=== PATIENT | male | born 1960 | race Caucasian/White ===

== ENCOUNTER 2020-05-29 18:37 | Emergency (ER) | payer BC ==
[2020-05-29] MEDS ORDERED: Sodium Chloride 0.9% 2.5 ML Syringe FLUSH PRN (18:39)
[2020-05-29] MEDS ORDERED: Sodium Chloride 0.9% 10 ML Syringe FLUSH PRN (18:39)
--- NOTE | 2020-05-29 18:42 | EDM.PDOC ---
ED HPI GENERAL MEDICAL PROBLEM <Lupillo Gli - Last Filed: 05/29/20 19:05> <Jay Romero - Last Filed: 05/29/20 20:16> - General Chief Complaint: Trauma Stated Complaint: TRAUMA Time Seen by Provider: 05/29/20 18:39 - History of Present Illness INITIAL COMMENTS - FREE TEXT/NARRATIVE: 59-year-old male with history of alcohol abuse and A. fib presents after being found down by his . Patient reportedly fell from standing is unclear how long he was down on the ground. He says that he is fine and just repeatedly says "Oh my Gosh." Over and over again. (Lupillo Gil) - Related Data Allergies Allergy/AdvReac Type Severity Reaction Status Date / Time Sulfa (Sulfonamide Allergy Cannot Verified 05/29/20 18:59 Antibiotics) Remember Home Meds: Home Meds Hydrochlorothiazide 1 tab PO DAILY 10/20/15 [History] Metoprolol Succinate [Toprol XL 100mg] 1 tab PO DAILY 10/20/15 [History] dilTIAZem HCL [Taztia Xt] 1 tab PO DAILY 10/20/15 [History] hydrALAZINE [Apresoline] 1 tab PO TID 10/20/15 [History] Past Medical History HEENT History: Reports: None Cardiovascular History: Reports: Hypertension Respiratory History: Reports: None Gastrointestinal History: Reports: None Neurological History: Reports: None Psychiatric History: Reports: None Endocrine/Metabolic History: Reports: None Dermatologic History: Reports: None - Infectious Disease History Infectious Disease History: Reports: None <Lupillo Gil - Last Filed: 05/29/20 19:05> Social & Family History - Family History Cardiac: Reports: CAD Endocrine/Metabolic: Reports: Diabetes, type II <Lupillo Gil - Last Filed: 05/29/20 19:05> Review of Systems - Review of Systems Review Of Systems: Unable To Obtain Reason Not Obtained: intoxication <Lupillo Gil - Last Filed: 05/29/20 19:05> ED EXAM, GENERAL - Physical Exam Exam: See Below <Lupillo Gil - Last Filed: 05/29/20 19:05> - Physical Exam Free Text/Narrative:: General Appearance: No acute distress, appears comfortable Skin: No rash HEENT: Normocephalic, 1 cm well approximated laceration just superior to the lateral border of the right eyebrow, midface stable no periorbital swelling, sclera anicteric, mucous membranes moist Neck: No clear swelling or deformity but given intoxication remains in c-collar Chest and Lungs: Bilateral breath sounds, clear to auscultation, no focal tenderness or crepitus Cardiovascular: Regular rate and rhythm, no murmur Abdomen: Soft, non-tender Back: Normal Musculoskeletal: No edema or tenderness, moves all four extremities well no focal tenderness or swelling of the major joints pelvis nontender and stable to rock Neurologic: Awake, alert, no obvious deficits, moving all extremities, GCS 14 for his intoxication (Lupillo Gil) ED TRAUMA PROCEDURES - Laceration/Wound Repair Left Forehead Lac/Wound Length In cm: 1 Appearance: Superficial Distal NVT: Neuro & Vascular Intact Anesthetic Type: Other (None needed) Skin Prep: Saline Exploration/Debridement/Repair: Wound Explored, In a Bloodless Field Closed With: Dermabond <Jay Romero - Last Filed: 05/29/20 20:16> - Laceration/Wound Repair Left Forehead Progress/Comments: Uneventful repair of superficial laceration was accomplished (Jay Romero) Course <Jay Romero - Last Filed: 05/29/20 20:16> - Vital Signs Text/Narrative:: 1921 hrs. patient eloped briefly but he was returned to his bed without having any fall or other event. He agreed to cooperate. Watch closely in case he cannot remember he agreed to that. The laceration on the forehead appears hemostatic and looks like we could clean it up and probably is a dermal adhesive. It is in no acute distress. He is cooperative but will be leave the bedside he forgets and tries to get up. The patient has an alcohol level of 345 and his behavior is perfectly consistent with that. Wound was repaired. Awaiting CT and decision by the family if they will come and get him so that he does not have to spend the night sobering up in the emergency department. I spoke with the if the CTs came back positive and she agreed to come and get him and try to get him to see a counselor at [facility] or get into . Patient will be discharged to the care of the . (Jay Romero) Last Recorded V/S: Last Vital Signs Temp 96.1 F L 05/29/20 18:44 Pulse 72 05/29/20 18:44 Resp 15 05/29/20 18:44 BP 129/90 05/29/20 18:44 Pulse Ox 96 05/29/20 18:44 - Orders/Labs/Meds Orders: Active Orders 24 hr Category Date Time Status Communication Order [RC] STAT Care 05/29/20 19:23 Active Vaccines to be Administered [RC] PER UNIT ROUTINE Care 05/29/20 19:23 Active Sodium Chloride 0.9% [Saline Flush] Med 05/29/20 18:39 Active 10 ml FLUSH ASDIRECTED PRN Sodium Chloride 0.9% [Saline Flush] Med 05/29/20 18:39 Active 2.5 ml FLUSH ASDIRECTED PRN Saline Lock Insert [OM.PC] Stat Oth 05/29/20 18:39 Ordered Medication Orders Sodium Chloride (Saline Flush) 10 ml FLUSH ASDIRECTED PRN PRN Reason: Keep Vein Open Sodium Chloride (Saline Flush) 2.5 ml FLUSH ASDIRECTED PRN PRN Reason: Keep Vein Open Labs: Laboratory Tests 05/29/20 05/29/20 05/29/20 Range/Units 18:40 18:40 18:40 WBC 14.68 H (4.0-11.0) K/uL RBC 5.18 (4.50-5.90) M/uL Hgb 16.5 (13.0-17.0) g/dL Hct 49.2 (38.0-50.0) % MCV 95.0 (80.0-98.0) fL MCH 31.9 (27.0-32.0) pg MCHC 33.5 (31.0-37.0) g/dL RDW Std Deviation 50.1 (28.0-62.0) fl RDW Coeff of Dora 14 (11.0-15.0) % Plt Count 238 (150-400) K/uL MPV 10.60 (7.40-12.00) fL Neut % (Auto) 58.6 (48.0-80.0) % Lymph % (Auto) 28.3 (16.0-40.0) % [place] % (Auto) 9.8 (0.0-15.0) % Eos % (Auto) 2.8 (0.0-7.0) % Baso % (Auto) 0.5 (0.0-1.5) % Neut # (Auto) 8.6 H (1.4-5.7) K/uL Lymph # (Auto) 4.2 H (0.6-2.4) K/uL [place] # (Auto) 1.4 H (0.0-0.8) K/uL Eos # (Auto) 0.4 (0.0-0.7) K/uL Baso # (Auto) 0.1 (0.0-0.1) K/uL Nucleated RBC % 0.0 /100WBC Nucleated RBCs # 0 K/uL INR 1.05 APTT 24.3 (18.6-31.3) SEC Sodium 139 (136-148) mmol/L Potassium 3.4 L (3.5-5.1) mmol/L Chloride 101 (98-107) mmol/L Carbon Dioxide 26.3 (21.0-32.0) mmol/L BUN 18 (7.0-18.0) mg/dL Creatinine 1.0 (0.8-1.3) mg/dL Est Cr Clr Drug Dosing 80.10 mL/min Estimated GFR (MDRD) > 60.0 ml/min Glucose 141 H (74-106) mg/dL Calcium 9.1 (8.5-10.1) mg/dL Magnesium 1.6 L (1.8-2.4) mg/dL Total Bilirubin 0.3 (0.2-1.0) mg/dL AST 40 H (15-37) IU/L ALT 43 (14-63) IU/L Alkaline Phosphatase 105 (46-116) U/L Creatine Kinase 120 (26-308) U/L Total Protein 8.0 (6.4-8.2) g/dL Albumin 4.0 (3.4-5.0) g/dL Globulin 4.0 (2.6-4.0) g/dL Albumin/Globulin Ratio 1.0 (0.9-1.6) Ethyl Alcohol 345 mg/dL Meds: Medications Generic Name Dose Route Start Last Admin Trade Name Freq PRN Reason Stop Dose Admin Sodium Chloride 10 ml 05/29/20 18:39 Saline Flush FLUSH ASDIRECTED PRN Keep Vein Open Sodium Chloride 2.5 ml 05/29/20 18:39 Saline Flush FLUSH ASDIRECTED PRN Keep Vein Open Discontinued Medications Generic Name Dose Route Start Last Admin Trade Name Latia PRN Reason Stop Dose Admin Diphtheria/Tetanus/Acell Pertussis 0.5 ml 05/29/20 19:23 05/29/20 19:57 Adacel IM 05/29/20 19:24 0.5 ml .ONCE ONE Administration Octyl Cyanoacrylate 1 applic 05/29/20 19:23 05/29/20 19:57 Dermabond Advance TOP 05/29/20 19:24 1 applic ONETIME ONE Administration Departure <Lupillo Gil - Last Filed: 05/29/20 19:05> - Departure Time of Disposition: 20:15 Condition: Good <HeatherJay - Last Filed: 05/29/20 20:16> - Departure Disposition: Home, Self-Care 01 Clinical Impression: Laceration of forehead Alcohol intoxication Qualifiers: Complication of substance-induced condition: uncomplicated Qualified Code(s): F10.120 - Alcohol abuse with intoxication, uncomplicated - Discharge Information Instructions: Laceration Care, Adult Referrals: Gopal Ames MD [Primary Care Provider] - Forms: ED Department Discharge Additional Instructions: [facility] - Primary Care [address] [place] [address] [address] [facility] Address: [address] [place] [address] Hours: walk in 9 AM M-F The following information is given to patients seen in the emergency department who are being discharged to home. This information is to outline your options for follow-up care. We provide all patients seen in our emergency department with a follow-up referral. The need for follow-up, as well as the timing and circumstances, are variable depending upon the specifics of your emergency department visit. If you don't have a primary care physician on staff, we will provide you with a referral. We always advise you to contact your personal physician following an emergency department visit to inform them of the circumstance of the visit and for follow-up with them and/or the need for any referrals to a consulting specialist. The emergency department will also refer you to a specialist when appropriate. This referral assures that you have the opportunity for follow-up care with a specialist. All of these measure are taken in an effort to provide you with optimal care, which includes your follow-up. Under all circumstances we always encourage you to contact your private physician who remains a resource for coordinating your care. When calling for follow-up care, please make the office aware that this follow-up is from your recent emergency room visit. If for any reason you are refused follow-up, please contact the [facility] Emergency Department at and asked to speak to the emergency department charge nurse. Sepsis Event Note (ED) - Focused Exam Vital Signs: Vital Signs Temp Pulse Resp BP Pulse Ox 05/29/20 18:44 96.1 F L 72 15 129/90 96 <Lupillo Gil - Last Filed: 05/29/20 19:05> - My Orders Last 24 Hours: My Active Orders 05/29/20 19:23 Communication Order [RC] STAT Vaccines to be Administered [RC] PER UNIT ROUTINE - Assessment/Plan Last 24 Hours: My Active Orders 05/29/20 19:23 Communication Order [RC] STAT Vaccines to be Administered [RC] PER UNIT ROUTINE Assessment:: 59-year-old male known alcoholic per his is communicated through EMS presenting after fall. Primary survey intact secondary survey notable for right eye laceration consistent with head trauma I believe you can clinically clear the abdomen and nonbony pelvis as well as the extremities. Chest x-ray preliminarily interpreted at the bedside by myself at the time of the picture demonstrates no pneumothorax or other acute finding x-ray of the bony pelvis likewise unremarkable on my preliminary interpretation. Given the intoxication and signs of head trauma CT scan of the brain and C-spine has been ordered CBC, CMP, PT/INR and PTT given unclear anticoagulant history as well as alcohol level pending. Further evaluation and disposition pending these initial results. These results are pending and patient signed out to Dr. Romero pending further evaluation. (Lupillo Gil)
[2020-05-29 19:22] LABS: BLOOD UREA NITROGEN,BUN 18 mg/dL (7.0-18.0); CARBON DIOXIDE,CO2 26.3 mmol/L (21.0-32.0); CHLORIDE,CL 101 mmol/L (98-107); GLUCOSE RANDOM 141 mg/dL (74-106); POTASSIUM,K 3.4 mmol/L (3.5-5.1); SODIUM,NA 139 mmol/L (136-148)
[2020-05-29] MEDS ORDERED: Octyl 2-Cyanoacrylate 1 Tube TOP ONE (19:23)
[2020-05-29] MEDS ORDERED: Diphtheria,Pertussis(Acell),Tetanus Vaccine 0.5 ML Syringe IM ONE (19:23)
--- NOTE | 2020-05-29 19:27 | CR ---
INDICATION: Fall, intoxication TECHNIQUE: Chest 1 view COMPARISON: Single view chest October 21, 2015 FINDINGS: There is hyperinflation and chronic interstitial change without dense consolidation or effusion. There is no pneumothorax. The cardiac silhouette is stably prominent. Somewhat age indeterminate rib deformities of the left 7th and 8th ribs. Redemonstration of chronic rib deformity of the right 2nd, 3rd, 7th, and 8th ribs. IMPRESSION: Hyperinflation and chronic interstitial changes with somewhat age indeterminate rib deformities of the bilateral ribs as described above. No dense consolidation or pneumothorax. Dictated by Hank Stapleton MD @ May 29 2020 7:23PM Signed by Dr. Hank Stapleton @ May 29 2020 7:26PM
--- NOTE | 2020-05-29 19:29 | CR ---
Indication: Pain, fall Technique: Pelvis 1 view Comparison: None Findings: Bones: Alignment is normal. No fractures or bone lesions. Joint spaces: There is mild to moderate degenerative change of the bilateral femoroacetabular joints with mild axial loss of joint space and marginal osteophyte formation. Soft tissues: Unremarkable. Impression: Degenerative changes of the bilateral hips without acute osseous abnormality. Dictated by Hank Stapleton MD @ May 29 2020 7:27PM Signed by Dr. Hank Stapleton @ May 29 2020 7:28PM
--- NOTE | 2020-05-29 20:01 | CT ---
INDICATION: Fall while intoxicated. COMPARISON: 10/21/2015. TECHNIQUE: CT of the cervical spine without contrast. FINDINGS: These no acute fracture or static subluxation of the cervical spine. No degenerative changes. No listhesis. Examination is somewhat limited due to motion artifact at several levels. Severe carotid artery calcifications. Periapical lucencies are seen involving several teeth and erosions along the gumline likely due to periapicitis and dental caries. IMPRESSION: Suboptimal examination without definite acute fracture or static subluxation. Please note that all CT scans at this facility use dose modulation, iterative reconstruction, and/or weight-based dosing when appropriate to reduce radiation dose to as low as reasonably achievable. Dictated by Don Cox MD @ May 29 2020 7:17PM (Electronically Signed)
--- NOTE | 2020-05-29 20:01 | CT ---
Indication: Fall while intoxication, head trauma Comparison: None available. Technique: Multiple sequential axial images from the foramen magnum to the vertex were obtained without IV contrast. Findings: Evaluation is limited by marked motion artifact particularly near the vertex. No definite skull fracture. Periapical lucencies are seen involving several maxillary teeth and erosions along the gumline likely due to periapicitis and dental caries. Polypoid thickening of the maxillary sinuses. No evidence of mass effect, midline shift, or extra-axial fluid collection. No evidence of space-occupying lesion or intracranial hemorrhage. No no definite evidence of an acute cortical-based area of infarction. Ventricles and sulci are mildly prominent for patient age. Basal cisterns are patent. Visualized portions of the orbits, mastoid air cells are unremarkable. Impression: 1. Suboptimal exam due to motion without CT evidence of an acute intracranial process. 2. Periapical lucencies are seen involving several maxillary teeth and erosions along the gumline likely due to periapicitis and dental caries. Please note that all CT scans at this facility use dose modulation, iterative reconstruction, and/or weight-based dosing when appropriate to reduce radiation dose to as low as reasonably achievable. Dictated by Don Cox MD @ May 29 2020 7:18PM (Electronically Signed)
== END 2020-05-29 20:27 | disposition home or self-care (01) ==
LOC: MW.ED 18:37
DX: S01.81XA Laceration without foreign body of other part of head, initial encounter (principal); F10.120 Alcohol abuse with intoxication, uncomplicated; I10 Essential (primary) hypertension; I48.91 Unspecified atrial fibrillation; Z23 Encounter for immunization; Z88.2 Allergy status to sulfonamides; Z79.899 Other long term (current) drug therapy; Y90.8 Blood alcohol level of 240 mg/100 ml or more; W17.89XA Other fall from one level to another, initial encounter
CPT/HCPCS: 12011; 36415; 70450; 71045; 72125; 72170; 80053; 80307; 82550; 83735; 85025; 85610; 85730; 90471; 90715; 99285; A9270; 99284